=== PATIENT | male | born 1970 | race Caucasian/White ===

== ENCOUNTER 2024-01-09 23:46 | Emergency (ER) | payer SELFPAY ==
--- OUTSIDE RECORDS SUMMARY | 2024-01-09 23:49 | XMS REPORT | Continuity of Care Document ---
Author Name Unknown Address [address] [facility] [address] [place] [address] [facility] Address [address] [facility] [address] [place] [address] Care Team Providers Care Pipeline Operator Name Role Phone JS VICKERS Attending Clinician Unava ilable Encounters Start Date/Time End Date/Time Encounter Type Admission Type Attending Clinicians Care Facility Care Department Encounter ID Source 2023-09-19 14:21:59 2023-09-19 14:21:59 Outpatient [facility] [id number] Peterson Kilgore 2023-09-03 08:03:05 2023-09-03 08:03:05 Outpatient [facility] [id number] Peterson Kilgore 2023-06-11 14:14:53 2023-06-11 14:14:53 Outpatient [facility] [id number] Peterson Kilgore 2023-04-17 15:15:00 2023-04-17 15:15:00 Outpatient JS VICKERS [id number] Mary Grace Mcfarlane Results Test Description Test Time Test Comments Results Result Co mments Source [id number] 02:27:22* Test Item Value Reference Range Interpretation Comme nts AMYLASE (test code = 2205) 128 U/L 28-100 H [id number] 02:27:22* Test Item Value Reference Range Interpretation Comme nts LIPASE (test code = 2058) 178 U/L 13-60 H PSA, [id number] 06:57:05* Test Item Value Reference Range Interpretation Comme nts PSA, TOTAL (test code = 2606) 0.24 NG/ML <=4.00 NOTE: Methodolog y is [place] Brinda Electrochemiluminescence Immunoassay traceable to WHO reference standard 96/760. VITAMIN [id number] 06:48:47* Test Item Value Reference Range Interpretation Comme nts VITAMIN B-12 (test code = 2840) 418 PG/ML 200-950 [id number] 06:48:36* Test Item Value Reference Range Interpretation Comme nts TESTOSTERONE (test code = 2830) 411 NG/DL 300-890 UNLESS OTHERWISE INDICATED, ALL TESTING PERFORMED AT [facility] [address] [place] [address] BEHAVIORAL HEALTH ASSOCIATE: ISAAC BROCK M.D. [place] NUMBER [id number] [facility] [place]. [id number] LIPID [id number] 06:47:42* Test Item Value Reference Range Interpretation Comme nts CHOLESTEROL (test code = 2210) 305 MG/DL <200 H TRIGLYCERIDES (test code = 2232) 1106 MG/DL <150 H SPECIMEN LI PEMIC RESULTS RECHECKED AND VERIFIED HDL CHOLESTEROL (test code = 2220) 34 MG/DL >39 L CALC LDL CHOL (test code = 2237) (NOTE) MG/DL <100 UNABLE TO CALCUL ATE A VALID LDL CHOLESTEROL WHEN THE TRIGLYCERIDEVALUE IS GREATER THAN 400 MG/DL.UNABLE TO CALCULATE A VALID LDL CHOLESTEROL WHEN THE TRIGLYCERIDEVALUE IS GREATER THAN 400 MG/DL. NOTE: CALCULATED LDL IS BASED ON VIDAL-NELSON METHOD WHICHINCLUDES ADJUSTABLE TRIGLYCERIDE:VLDL CHOLESTEROL RATIO.THIS FACTOR VARIES BY MEASURED TRIGLYCERIDE AND NON-HDLCHOLESTEROL CONCENTRATIONS WITH INCREASED CALCULATED LDL SEENIN HIGHER TRIGLYCERIDE OR LOWER NON-HDL SPECIMENS. FOR MOREINFORMATION, SEE CLIENT ANNOUNCEMENT AT [email or web address] CalcLDL-C RISK RATIO LDL/HDL (test code = 2238) (NOTE) RATIO <3.55 UNABLE TO [place] CULATE COMPREHENSIVE METABOLIC [id number] 06:47:42* Test Item Value Reference Range Interpretation Comme nts GLUCOSE (test code = 2217) 456 MG/DL 70-99 H BUN (test code = 2208) 16 MG/DL 6-20 CREATININE (test code = 2214) 1.31 MG/DL 0.80-1.40 eGFR (2020 CKD-EPI) (test co de = 75242) 65 ML/MIN/1.73 >60 CALC BUN/CREAT (test code = 2235) 12 RATIO 6-28 SODIUM (test code = 2230) 134 MEQ/L 133-146 POTASSIUM (test code = 8) 4.7 MEQ/L 3.5-5.4 CHLORIDE (test code = 5) 98 MEQ/L 95-107 CARBON DIOXIDE (test code = 2205) 23 MEQ/L 19-31 CALCIUM (test code = 2208) 9.6 MG/DL 8.5-10.5 PROTEIN, TOTAL (test code = 2228) 7.5 G/DL 6.1-8.3 ALBUMIN (test code = 2200) 4.6 G/DL 3.5-5.2 CALC GLOBULIN (test code = 2239) 2.9 G/DL 1.9-3.7 CALC A/G RATIO (test code = 2233) 1.6 RATIO 1.0-2.6 BILIRUBIN, TOTAL (test code = 2206) 0.5 MG/DL <=1.2 ALKALINE PHOSPHATASE (test code = 2203) 206 U/L 40-121 H AST (test code = 2217) 23 U/L 9-50 ALT (test code = 2218) 36 U/L 5-50 HEMOGLOBIN [id number] 06:26:35* Test Item Value Reference Range Interpretation Comme nts HEMOGLOBIN A1c (test code = 65029) 12.4 % 4.2-5.6 H [employer] GUIDELINES FOR HGB A1C: PREDIABETES/INCREASED RISK . . . . . . . 5.7-6.4% DIAGNOSIS OF DIABETES . . . . . . . . . >=6.5% WITH CONFIRMATION OR APPROPRIATE SYMPTOMS NOTE: ASSAY MAY BE AFFECTED BY HEMOGLOBINOPATHIES (SICKLE CELL ANEMIA, S-C DISEASE, OTHERS) OR ARTIFICIALLY LOWERED BY DECREASED RED CELL SURVIVAL (HEMOLYTIC ANEMIAS, BLOOD LOSS, ETC.). CONSIDER ALTERNATE TESTING OR LABORATORY CONSULTATION.
[2024-01-10] MEDS ORDERED: VANCOMYCIN 1 GM/VIAL ONE (00:49)
[2024-01-10] MEDS ORDERED: NA CHLORIDE 0.9% 250 ML ONE (00:49)
[2024-01-10 01:42] LABS: Absolute Basophils 0.1 K/uL (0-0.5); Absolute Eosinophils 0.1 K/uL (0-0.5); Absolute Lymphocytes (CBC) 1.5 K/uL (0.7-4.9); Absolute Monocytes 0.8 K/uL (0.1-1.3); Absolute Neutrophil 6.2 K/uL (1.8-8.0); Basophils % 0.9 % (0-1.3); Eosinophils % 1.3 % (0-4.4); Hematocrit 45.1 % (39.6-49.0); Lymphocytes % 17.1 % (15.3-44.8); MCH 27.7 pg (27.0-35.0); MCHC 33.2 g/dL (32.0-36.0); MCV 83.4 fL (80-100); MPV 8.4 fL (7.6-11.3); Monocytes % 9.7 % (3.3-12.3); Nucleated Red Blood Cells % 0.1 % (0-0); Platelets 250 thou/uL (152-406); Red Cell Distribution Width 13.1 % (12.1-15.2)
[2024-01-10 01:53] LABS: Anion Gap 12.1 mEq/L (5.0-15.0); Potassium 4.1 mEq/L (3.5-5.1)
[2024-01-10] MEDS ORDERED: INSULIN REGULAR (HUMAN) 100 UNIT/ML ONE (03:38)
[2024-01-10] MEDS ORDERED: NA CHLORIDE 0.9% 1,000 ML ONE (03:38)
[2024-01-10] MEDS ORDERED: CEPHALEXIN 250 MG CAP ONE (03:58)
[2024-01-10] MEDS ORDERED: SMZ./TMP. 800/160 MG TABLET ONE (03:58)
--- NOTE | 2024-01-10 04:55 | ER ---
Nurse's Notes [facility] Name: Kavon Barfield Jr Age: 53 yrs Sex: Male : 1970 Arrival Date: 01/09/2024 Time: 23:46 Bed 11 Private MD: Diagnosis: Type 2 diabetes mellitus with hyperglycemia;Left second toe pressure ulcer, left second toe diabetic wound infection, uncontrolled diabetes mellitus, dehydration Presentation: 01/09 00:12 Chief complaint: Patient states: left 2nd toe injury on Sunday, today noticed toe was km8 turning purple; pt has hx of DM II. Coronavirus screen: Client denies travel out of the [place] in the last 14 days. Ebola Screen: No symptoms or risks identified at this time. Initial Sepsis Screen: Does the patient meet any 2 criteria? HR > 90 bpm. Does the patient have a suspected source of infection? No. Patient's initial sepsis screen is negative. Risk Assessment: Do you want to hurt yourself or someone else? Patient reports no desire to harm self or others. Onset of symptoms was January 10, 2024. 00:12 Method Of Arrival: Ambulatory km8 00:12 Acuity: NATHANAEL 3 km8 Triage Assessment: 00:14 General: Appears in no apparent distress. comfortable, Behavior is calm, cooperative, km8 appropriate for age. Pain: Complains of pain in left second toe Pain currently is 4 out of 10 on a pain scale. EENT: No signs and/or symptoms were reported regarding the EENT system. Neuro: Level of Consciousness is awake, alert, obeys commands, Oriented to person, place, time, situation. Cardiovascular: Denies chest pain, shortness of breath, Patient's skin is warm and dry. Respiratory: Airway is patent Respiratory effort is even, unlabored, Respiratory pattern is regular, symmetrical. GI: No signs and/or symptoms were reported involving the gastrointestinal system. : No signs and/or symptoms were reported regarding the genitourinary system. Derm: Skin is intact, is healthy with good turgor, Skin is dry, Skin is pink, warm \T\ dry. normal, Skin temperature is warm Wound noted left second toe Wound is purple. Musculoskeletal: Reports pain in left second toe. Historical: - Allergies: 00:14 PENICILLINS; km8 - PMHx: 00:14 diabetes mellitus; Hypercholesterolemia; Hypertensive disorder; km8 - PSHx: 00:14 only one kidney; km8 - Immunization history:: Adult Immunizations up to date. - Infectious Disease History:: Denies. - Social history:: Smoking status: Patient denies any tobacco usage or history of. Screenin:30 [facility] ED Fall Risk Assessment (Adult) History of falling in the last 3 months, km8 including since admission No falls in past 3 months (0 pts) Confusion or Disorientation No (0 pts) Intoxicated or Sedated No (0 pts) Impaired Gait No (0 pts) Mobility Assist Device Used No (0 pt) Altered Elimination No (0 pt) Score/Fall Risk Level 0 - 2 = Low Risk Oriented to surroundings, Maintained a safe environment, Educated pt \T\ family on fall prevention, incl call for assistance when getting out of bed, Assessed \T\ reinforced patient's understanding of fall precautions. Abuse screen: Denies threats or abuse. Abuse screen: Denies injuries from another. Nutritional screening: No deficits noted. Tuberculosis screening: No symptoms or risk factors identified. Assessment: 00:30 Reassessment: see triage assessment. km8 02:00 Reassessment: Patient appears in no apparent distress at this time. No changes from 8 previously documented assessment. Patient and/or family updated on plan of care and expected duration. Pain level reassessed. Patient is alert, oriented x 3, equal unlabored respirations, skin warm/dry/pink. 03:00 Reassessment: Patient appears in no apparent distress at this time. No changes from 8 previously documented assessment. Patient and/or family updated on plan of care and expected duration. Pain level reassessed. Patient is alert, oriented x 3, equal unlabored respirations, skin warm/dry/pink. 04:06 Reassessment: Patient appears in no apparent distress at this time. No changes from 8 previously documented assessment. Patient and/or family updated on plan of care and expected duration. Pain level reassessed. Patient is alert, oriented x 3, equal unlabored respirations, skin warm/dry/pink. 05:12 Reassessment: Patient appears in no apparent distress at this time. Patient and/or pf1 family updated on plan of care and expected duration. Pain level reassessed. Patient is alert, oriented x 3, equal unlabored respirations, skin warm/dry/pink. Patient states symptoms have improved. Vital Signs: 00:12 BP 125 / 104; Pulse 107; Resp 16; Temp 98.8(TE); Pulse Ox 99% ; Weight 99.79 kg; Height km8 6 ft. 0 in. ; Pain 4/10; 01:15 BP 151 / 88; Pulse 96; Resp 16; Pulse Ox 97% on R/A; km8 01:30 BP 158 / 91; Pulse 95; Pulse Ox 97% on R/A; km8 02:00 BP 143 / 90; Pulse 95; Resp 16; Pulse Ox 97% on R/A; km8 03:00 BP 133 / 69; Pulse 92; Resp 16; Pulse Ox 98% on R/A; pf1 04:00 BP 126 / 70; Pulse 90; Resp 18; Pulse Ox 99% on R/A; Pain 2/10; pf1 05:00 BP 141 / 84; Pulse 92; Resp 16; Temp 98.2(O); Pulse Ox 99% on R/A; Pain 2/10; pf1 00:12 Body Mass Index 29.84 (99.79 kg, 182.88 cm) km8 00:12 Pain Scale: Adult km8 04:00 Pain Scale: Adult pf1 05:00 Pain Scale: Adult pf1 Delmita Coma Score: 00:30 Eye Response: spontaneous(4). Motor Response: obeys commands(6). Verbal Response: km8 oriented(5). Total: 15. ED Course: 01/08 23:48 Patient arrived in ED. jj6 23:50 Anne Marie Gonzalez FNP-C [facility] 23:50 Herman Gooden MD is Attending Physician. kb 01/09 00:14 Triage completed. km8 00:14 Arm band placed on right wrist. km8 00:16 Patient placed in waiting room, Patient notified of wait time. km8 00:30 Patient has correct armband on for positive identification. Bed in low position. Call km8 light in reach. Side rails up X2. Pulse ox on. NIBP on. Lights dimmed. 00:30 Inserted saline lock: 20 gauge in right forearm, using aseptic technique. Blood km8 collected. 00:30 Initial lab(s) drawn, by me, sent to lab. First set of blood cultures drawn by me. km8 00:55 Foot Left 3 View XRAY In Process Unspecified. EDMS 01:05 Second set of blood cultures drawn by me. km8 04:53 Migue Lao DPM is Referral Physician. sp4 05:13 No provider procedures requiring assistance completed. IV discontinued, intact, pf1 bleeding controlled, No redness/swelling at site. Pressure dressing applied. 05:14 Provided Education on: prescriptions and wound care. pf1 Administered Medications: 01:08 Drug: vancoMYCIN IVPB 1 grams IVPB once over 2 hrs Route: IVPB; Infused Over: 2 hrs; pf1 Site: right forearm; 03:08 Follow up: IV Status: Completed infusion; IV Intake: 250ml km8 03:40 Drug: NS 0.9% IV 1000 ml IV at 1 bolus Per protocol; 1000 mL bolus Route: IV; Rate: 1 km8 bolus; Site: right forearm; 03:40 Drug: Insulin Regular Human IVP 10 units IVP once {Co-Signature: pf1 (Brianne Augustine km8 RN).} Route: IVP; Site: right forearm; 04:26 Follow up: Response: No adverse reaction; Marked relief of symptoms pf1 04:02 Drug: Trimethoprim-Sulfamethoxazole PO (160 mg-800 mg (DS) 1 tablet PO once Route: PO; km8 04:27 Follow up: Response: No adverse reaction pf1 04:02 Drug: Cephalexin PO 500 mg PO once Route: PO; km8 04:27 Follow up: Response: No adverse reaction pf1 Medication: 00:30 VIS not applicable for this client. km8 Intake: 03:08 IV: 250ml; Total: 250ml. km8 Outcome: 04:54 Discharge ordered by . sp4 05:14 Discharged to home ambulatory, pf1 05:14 Condition: stable 05:14 Discharge instructions given to patient, Instructed on discharge instructions, follow up and referral plans. Demonstrated understanding of instructions, follow-up care, medications, Prescriptions given X 3, 05:14 Patient left the ED. pf1 Signatures: Dispatcher [employer] EDMS Anne Marie Gonzalez, SEBASTIAN RICHMONDP-Otilia Carr [email or web address] Brianne Augustine, DEDRICK RN pf1 Herman Gooden MD MD sp4 Janny Conteh RN RN km8 Brianne Augustine RN pf1 Corrections: (The following items were deleted from the chart) 03:44 03:40 NS 0.9% IV 1000 ml IV at 1 bolus in left forearm noel km8
--- NOTE | 2024-01-10 04:55 | EDPHYS ---
Physician Documentation [facility] Name: Kavon Barfield Jr Age: 53 yrs Sex: Male : 1970 Arrival Date: 01/09/2024 Time: 23:46 Bed 11 Private MD: ED Physician Herman Gooden HPI: 01/09 00:05 This 53 yrs old Male presents to ER via Unassigned with complaints of Toe Injury. kb 00:06 Pt is a 53 year old male who presents for redness and swelling to left second toe that kb he noticed this morning. States he has had an open wound to that toe for a couple of days. Denies fever. Historical: - Allergies: 00:14 PENICILLINS; km8 - PMHx: 00:14 diabetes mellitus; Hypercholesterolemia; Hypertensive disorder; km8 - PSHx: 00:14 only one kidney; km8 - Immunization history:: Adult Immunizations up to date. - Infectious Disease History:: Denies. - Social history:: Smoking status: Patient denies any tobacco usage or history of. ROS: 00:04 Constitutional: As per HPI kb Exam: 00:04 Constitutional: This is a well developed, well nourished patient who is awake, alert, kb and in no acute distress. Head/Face: Normocephalic, atraumatic. ENT: Moist Mucous membranes Cardiovascular: Regular rate Respiratory: Respirations even and unlabored. No increased work of breathing. Talking in full sentences MS/ Extremity: Pulses equal, no cyanosis. Neurovascular intact. Full, normal range of motion. Neuro: Awake and alert, GCS 15, oriented to person, place, time, and situation. Moves all extremities. Normal gait. 00:04 Skin: cellulitis, that is moderate, on the left second toe, open wound to lateral left second toe. Vital Signs: 00:12 BP 125 / 104; Pulse 107; Resp 16; Temp 98.8(TE); Pulse Ox 99% ; Weight 99.79 kg; Height km8 6 ft. 0 in. ; Pain 4/10; 01:15 BP 151 / 88; Pulse 96; Resp 16; Pulse Ox 97% on R/A; km8 01:30 BP 158 / 91; Pulse 95; Pulse Ox 97% on R/A; km8 02:00 BP 143 / 90; Pulse 95; Resp 16; Pulse Ox 97% on R/A; km8 03:00 BP 133 / 69; Pulse 92; Resp 16; Pulse Ox 98% on R/A; pf1 04:00 BP 126 / 70; Pulse 90; Resp 18; Pulse Ox 99% on R/A; Pain 2/10; pf1 05:00 BP 141 / 84; Pulse 92; Resp 16; Temp 98.2(O); Pulse Ox 99% on R/A; Pain 2/10; pf1 00:12 Body Mass Index 29.84 (99.79 kg, 182.88 cm) km8 00:12 Pain Scale: Adult km8 04:00 Pain Scale: Adult pf1 05:00 Pain Scale: Adult pf1 Ryder Coma Score: 00:30 Eye Response: spontaneous(4). Motor Response: obeys commands(6). Verbal Response: km8 oriented(5). Total: 15. MDM: 01/08 23:50 Patient medically screened. kb 01/09 00:05 Differential diagnosis: open wound, cellulitis, abscess, contusion. Data reviewed: kb vital signs, nurses notes. 00:59 Transition of care: After a detail discussion of the patient's case, care is kb transferred to Herman Gooden MD. 04:50 Differential Diagnosis altered mental status, sepsis, flu. Data reviewed: lab test sp4 result(s), radiologic studies, plain films. ED course: Left second pressure toe ulcer with infected toe- dressing was applied, patient will be prescribed extended course of antibiotics. Patient will be referred to local emblem drawer in for further evaluation. . ED course: EXAM DESCRIPTION: Foot Left 3 View CLINICAL HISTORY: PAIN COMPARISON: None. FINDINGS: 3 views of the left foot. No acute fracture or dislocation. Normal osseous mineralization. Tarsals and metatarsals appear appropriately aligned. Plantar calcaneal spur. Atherosclerotic vascular calcification. IMPRESSION: No acute fracture or dislocation. 05:00 Consideration of Admission/Observation Escalation of care including sp4 admission/observation considered. ED course: Patient was advised to treat his diabetic food for 20 days and see emblem drawer in. 01/08 23:56 Order name: CBC with Diff; Complete Time: 03:28 kb 01/08 23:56 Order name: Basic Metabolic Panel; Complete Time: 03:28 kb 01/08 23:56 Order name: Blood Culture Adult (2) kb 01/09 04:54 Order name: Glucose, Ancillary Testing EDMS 01/08 23:56 Order name: Foot Left 3 View XRAY kb 01/08 23:56 Order name: IV Start; Complete Time: 01:09 kb Administered Medications: 01:08 Drug: vancoMYCIN IVPB 1 grams IVPB once over 2 hrs Route: IVPB; Infused Over: 2 hrs; pf1 Site: right forearm; 03:08 Follow up: IV Status: Completed infusion; IV Intake: 250ml km8 03:40 Drug: NS 0.9% IV 1000 ml IV at 1 bolus Per protocol; 1000 mL bolus Route: IV; Rate: 1 km8 bolus; Site: right forearm; 03:40 Drug: Insulin Regular Human IVP 10 units IVP once {Co-Signature: pf1 (Brianne Augustine km8 RN).} Route: IVP; Site: right forearm; 04:26 Follow up: Response: No adverse reaction; Marked relief of symptoms pf1 04:02 Drug: Trimethoprim-Sulfamethoxazole PO (160 mg-800 mg (DS) 1 tablet PO once Route: PO; km8 04:27 Follow up: Response: No adverse reaction pf1 04:02 Drug: Cephalexin PO 500 mg PO once Route: PO; km8 04:27 Follow up: Response: No adverse reaction pf1 Disposition: 04:50 Co-signature as Attending Physician, Herman Gooden MD I agree with the assessment sp4 and plan of care. I reviewed the patient's care provided by Advanced Practice Provider \T\ agree w/ the diagnosis \T\ care plan. I personally saw the pt \T\ performed a substantive portion of the visit, incldng all aspects of the (History/Exam/Medical Decision Making). Disposition Summary: 01/10/24 04:54 Discharge Ordered Notes: Please see Mechanical Car Checker for evaluation of your foot infection Location: Home sp4 Problem: new sp4 Symptoms: have improved sp4 Condition: Stable sp4 Diagnosis - Type 2 diabetes mellitus with hyperglycemia sp4 - Left second toe pressure ulcer, left second toe diabetic wound infection, sp4 uncontrolled diabetes mellitus, dehydration Followup: sp4 - With: Migue Lao, YURY - When: 7 - 10 days - Reason: Recheck today's complaints Discharge Instructions: - Discharge Summary Sheet sp4 - Cellulitis, Adult, [id number] sp4 Forms: - Patient Portal Instructions sp4 Prescriptions: - Trulicity 1.5 mg/0.5 mL Subcutaneous Pen Injector - inject 1.5 milligram SUBCUTANEOUS route once wkly 1.5 mg Subcutaneous injection sp4 every week; 1 Kit; Refills: 0, Product Selection Permitted - Cephalexin 500 mg Oral capsule - take 1 capsule ORAL route every 8 hours for 21 days; 63 capsule; Refills: 0, sp4 Product Selection Permitted - Bactrim DS 800-160 mg Oral tablet - take 1 tablet ORAL route every 12 hours for 21 days; 42 tablet; Refills: 0, sp4 Product Selection Permitted Signatures: Dispatcher [employer] EDMS Anne Marie Gonzalez, LLOYD-C WAREHOUSE SELECTOR-Brianne Odonnell, DEDRICK RN pf1 Herman Gooden MD MD sp4 Janny Conteh RN RN km8 Brianne Augustine RN pf1 Corrections: (The following items were deleted from the chart) 01/08 23:57 23:57 Foot Left 3 View+RAD.RAD.BRZ ordered. EDMS EDMS 23:57 23:57 CBC+H.LAB.BRZ ordered. EDMS EDMS 23:57 23:57 BASIC METABOLIC PANEL+C.LAB.BRZ ordered. EDMS EDMS 23:57 23:57 BLOOD CULTURE*+BA.LAB.BRZ ordered. EDMS EDMS
[2024-01-10 08:22] VITALS: BP 141/84; TEMP 98.2; O2SAT 99
--- NOTE | 2024-01-10 13:21 | RAD REPORT ---
EXAM DESCRIPTION: RAD - Foot Left 3 View - 01/10/2024 6:03 am CLINICAL HISTORY: PAIN COMPARISON: None. FINDINGS: 3 views of the left foot. No acute fracture or dislocation. Normal osseous minera lization. Tarsals and metatarsals appear appropriately aligned. Plantar calcaneal spur. Atheroscler otic vascular calcification. IMPRESSION: No acute fracture or dislocation. Electronically signed by: Ric Ricardo DO 01/10/2024 01:00 AM CDT M Due to temporary technical issues with the PACS/Fluency reporting system, reports are being signed by the in house radiologist without review as a courtesy to ensure prompt reporting. The interpreting r adiologist is fully responsible for the content of the report.
== END 2024-01-10 05:14 | disposition home or self-care (01) ==
LOC: ER 23:46
DX: E11.65 Type 2 diabetes mellitus with hyperglycemia (principal); E11.621 Type 2 diabetes mellitus with foot ulcer; E86.0 Dehydration; L03.032 Cellulitis of left toe; L89.899 Pressure ulcer of other site, unspecified stage
CPT/HCPCS: 36415; 80048; 82947; 85025; 87040; J1815; J7030; J7050